=== PATIENT | male | born 1985 | race Caucasian/White ===

== ENCOUNTER 2020-03-08 14:25 | Outpatient (CLI) | payer OTHER, SELFPAY ==
--- NOTE | ~2020-03-08 | XR_ITS ---
EXAMINATION: XR knee RT 3V DATE: 03/08/2020 15:16 INDICATION: Right knee pain. TECHNIQUE: 3 views of right knee were obtained. COMPARISON: None. FINDINGS: Bone alignment is normal. No fracture. There is mild osteoarthritis of medial compartment c haracterized by tiny marginal osteophytes. No knee joint effusion. IMPRESSION: 1. Mild left knee osteoarthritis. Reviewed, dictated and finalized at location A.
--- NOTE | ~2020-03-08 | XR_ITS ---
EXAMINATION: XR knee LT 3V DATE: 03/08/2020 15:16 INDICATION: Left knee pain. TECHNIQUE: 3 views of left knee on 4 radiographs were obtained. COMPARISON: None. FINDINGS: Bone alignment is normal. No fracture. There is mild osteoarthritis of medial and patellofe moral compartments characterized by tiny marginal osteophytes. No knee joint effusion. IMPRESSION: 1. Mild left knee osteoarthritis. Reviewed, dictated and finalized at location A.
== END 2020-03-08 14:26 | disposition home or self-care (01) ==
LOC: CHSIMG 14:31
PROVIDERS: PCP Internal Medicine; Visit Provider Internal Medicine
DX: M25.562 Pain in left knee (principal); M25.561 Pain in right knee
CPT/HCPCS: 73562

== ENCOUNTER 2020-03-27 08:17 | Outpatient (CLI) | payer OTHER, SELFPAY ==
--- NOTE | ~2020-03-27 | MR_ITS ---
EXAMINATION: MR knee LT wo con DATE: 03/27/2020 09:13 INDICATION: Left knee pain TECHNIQUE: Magnetic resonance imaging (MRI) of the left knee was performed without intravenous contra st. Sequences included coronal PD-weighted FSE, coronal PD-weighted FS FSE, sagittal T2-weighted FSE , sagittal PD-weighted FS FSE and axial PD weighted fat saturated FSE. COMPARISON: None. FINDINGS: Medial compartment: Medial meniscus is normal. Articular cartilage is normal. Lateral compartment: Bucket-handle tear of the lateral meniscus with displacement of the relatively small bucket-handle fl ap. Articular cartilage is normal. Patellofemoral compartment: Chondral fissure which involves up to 50% the cartilage thickness at the patellar apical ridge. Troch lear cartilage is normal. Ligaments and tendons: Anterior and posterior cruciate ligaments are normal. There is thickening and mild increased signal i n the proximal medial collateral ligament without appreciable surrounding edema consistent with scarr ing related to chronic sprain. The fibular collateral ligament is normal. Moderate tendinopathy at th e insertion of the distal quadriceps tendon. The patellar tendon is normal. The visualized medial and lateral hamstring tendons as well as the iliotibial band are normal. Fluid: Physiologic amount of fluid in the joint space. No loose osteochondral bodies identified. Osseous/other: Normal marrow signal. No fracture or pathologic marrow replacing process. IMPRESSION: 1. Medial displacement of a bucket-handle tear of the lateral meniscus. 2. Partial-thickness chondral fissure at the patellar apical ridge. 3. Moderate distal quadriceps tendinopathy. 4. Scarring of the proximal medial collateral ligament likely related to chronic sprain. Reviewed, dictated and finalized at location A. IMPRESSION: 1. Medial displacement of a bucket-handle tear of the lateral meniscus. 2. Partial-thickness chondral fissure at the patellar apical ridge. 3. Moderate distal quadriceps tendinopathy. 4. Scarring of the proximal medial collateral ligament likely related to chroni c sprain.
== END 2020-03-27 08:18 | disposition home or self-care (01) ==
LOC: CHSIMG 08:18
PROVIDERS: PCP Internal Medicine; Visit Provider Internal Medicine
DX: M25.562 Pain in left knee (principal)
CPT/HCPCS: 73721

== ENCOUNTER 2020-11-27 01:20 | Outpatient (CLI) | payer OTHER, SELFPAY ==
[2020-11-27 18:46] LABS: SARS-CoV-2 RNA PCR Negative
== END 2020-11-27 01:21 | disposition home or self-care (01) ==
LOC: ANHCOVIDDT 01:20
PROVIDERS: PCP Internal Medicine; Visit Provider Urology
DX: Z01.812 Encounter for preprocedural laboratory examination (principal); Z20.822 Contact with and (suspected) exposure to COVID-19
CPT/HCPCS: C9803; U0003; U0005

== ENCOUNTER 2020-11-27 08:07 | Outpatient (CLI) | payer OTHER, SELFPAY ==
--- NOTE | 2020-11-27 08:25 | ECG_ITS ---
Measurements Intervals [place] Rate: 66 P: 34 MN: 172 QRS: 43 QRSD: 110 T: 29 QT: 380 QTc: 401 Interpretive Statements SINUS RHYTHM INTRAVENTRICULAR CONDUCTION DELAY BORDERLINE ECG Electronically Signed On 11-27-2020 8:41:53 DIETARY DIRECTOR by Jared Stratton D.O.
== END 2020-11-27 08:08 | disposition home or self-care (01) ==
PROVIDERS: PCP Internal Medicine; Visit Provider Anesthesiology
DX: Z01.818 Encounter for other preprocedural examination (principal); E78.00 Pure hypercholesterolemia, unspecified
CPT/HCPCS: 93005

== ENCOUNTER 2020-11-30 01:58 | Day surgery (SDC) | payer OTHER, SELFPAY ==
[2020-11-26 10:27] VITALS: BMI 43.4
--- NOTE | 2020-11-29 14:52 | WPDANESEPPF ---
Anes - Initial Pre Proc Eval Procedure: Operation Date: 11/30/20 12:15 Proposed Procedures p Bilateral Vasectomy With Possible Scrotal Exploration - Shahram Juárez MD Date/Time: 11/29/20 14:52 Surgeon: Shahram Juárez MD Pre Op Diagnosis: Encounter for male sterilization Patient Data Age: 34 Gender: M Height: 1.83 m Weight: 145.15 kg Allergies Allergy/AdvReac Type Severity Reaction Status Date / Time Sulfa (Sulfonamide Allergy Swelling Verified 11/26/20 10:22 Antibiotics) Home Medications Medication Instructions Recorded Confirmed Type rosuvastatin 10 mg PO QAM 11/26/20 11/26/20 History Patient hx anesthesia problems: none Family hx anesthesia problems: none PMF Past Medical History Medical History (Updated 11/29/20 @ 14:53 by Tushar Galicia MD) Hypercholesterolemia Morbid obesity with BMI of 40.0-44.9, adult Social History Social History Smoking status: Never smoker Living arrangements: other Spiritual care concerns: No Anes - Eval Final PreProcedure Day of Procedure 11/29/20 14:52 Patient weight: obese Heart: regular rate and rhythm Lungs: clear to auscultation and normal air movement Airway: Mallampati scale class II Neurological: alert and oriented Last oral intake: >/= 8 hours ASA classification: III Emergent: no Anesthetic plan: proceed Anesthesia type and monitoring: general GIVS and LMA Informed Consent: The patient's anesthetic plan and its attendant risks and benefits were discussed with the patient/family/POA. Questions were solicited and answers provided to the satisfaction of the patient/family/POA.
[2020-11-30] VITALS (8 sets, daily range): BP systolic 99–133; BP diastolic 47–83; PULSE 70–82; RESP 12–20; TEMP 36.2–36.6; O2SAT 93–100
[2020-11-30] MEDS: LACTATED RINGERS 1,000 ML 30 ML IV CONT (10:31)
--- NOTE | 2020-11-30 10:31 | WPDHPUPDATE1 ---
History and Physical Update Update Date/Time: 11/30/20 10:31 History and Physical has been reviewed, including an updated exam of the patient. There are NO changes in the patient's condition. Risks, benefits, and alternatives have been discussed and questions answered. Patient agrees to proceed with procedure.
[2020-11-30] MEDS: ceFAZolin 3 GM/D5W 100 ML 100 ML IVPB (11:57)
[2020-11-30] MEDS: LIDOCAINE HCL 1% LOCAL INJ 20 ML VIAL INFILTRATE (12:23)
--- NOTE | 2020-11-30 12:26 | PM.PROC ---
Procedure Note - Detailed Date of procedure: 11/30/20 Pre-op diagnosis: Encounter for male sterilization Post-op diagnosis: same Procedure performed: Bilateral vasectomy Description of procedure: Patient is taken to the operative suite and correctly identified. Once anesthesia was a obtained he was prepped draped usual sterile fashion. With relaxation we were able to palpate the vas as without difficulty. We did a standard midline incision. We isolated the right vas anesthetized with 1% lidocaine. We excised a segment fulgurated the ends and ligated the. Was then buried. This was then performed on the left side addition. We can anesthetized the skin and placed a 3 O chromic suture. Patient is taken recovery stable condition. This given the standard post vas instructions. IF he develops any problems he will call so we deal with appropriately Anesthesia: LEONARDO Surgeon: Shahram Juárez MD Drains: No Packing: No Pathology: yes Complications: No immediate complications Condition: stable Disposition: PACU
== END 2020-11-30 14:05 | disposition home or self-care (01) ==
PROVIDERS: PCP Internal Medicine; Visit Provider Urology
PROC: (CPT 55250; principal; 2020-11-30 12:15)
DX: Z30.2 Encounter for sterilization (principal); E78.00 Pure hypercholesterolemia, unspecified; E66.01 Morbid (severe) obesity due to excess calories; Z68.41 Body mass index [BMI] 40.0-44.9, adult
CPT/HCPCS: 55250; 88300; 93005; A9270; C9803; J0690; J1100; J2250; J2405; J2704; J3010; J7120; U0003; U0005

== ENCOUNTER 2021-01-05 12:26 | Outpatient (CLI) | payer OTHER, SELFPAY ==
[2021-01-06 00:59] LABS: SARS-CoV-2 RNA PCR Positive
== END 2021-01-05 12:27 | disposition home or self-care (01) ==
LOC: CHSLAB 12:27
PROVIDERS: PCP Internal Medicine; Visit Provider Internal Medicine
DX: U07.1 COVID-19 (principal)
CPT/HCPCS: C9803; U0003; U0005

== ENCOUNTER 2021-08-10 12:43 | Outpatient (CLI) | payer OTHER, SELFPAY ==
[2021-08-10 14:29] LABS: SARS-CoV-2 RNA PCR Negative (Negative)
== END 2021-08-10 12:44 | disposition home or self-care (01) ==
LOC: CHSLAB 12:45
PROVIDERS: PCP Internal Medicine; Visit Provider Internal Medicine
DX: J06.9 Acute upper respiratory infection, unspecified (principal); Z20.822 Contact with and (suspected) exposure to COVID-19
CPT/HCPCS: C9803; U0003; U0005

== ENCOUNTER 2021-10-26 15:44 | Outpatient (CLI) | payer OTHER, SELFPAY ==
[2021-10-26 17:38] LABS: Influenza A QL RT-PCR Negative (Negative); Influenza B QL RT-PCR Negative (Negative); SARS-CoV-2 RNA PCR Positive (Negative)
== END 2021-10-26 15:45 | disposition home or self-care (01) ==
PROVIDERS: PCP Internal Medicine; Visit Provider Internal Medicine
DX: U07.1 COVID-19 (principal); J06.9 Acute upper respiratory infection, unspecified
CPT/HCPCS: 87502; C9803; U0003; U0005

== ENCOUNTER 2023-04-09 07:29 | Outpatient (CLI) | payer OTHER, SELFPAY ==
--- NOTE | ~2023-04-09 | CT_ITS ---
EXAMINATION: CT sinus wo con DATE: 04/09/2023 07:47 INDICATION: Chronic sinusitis. Drainage. TECHNIQUE: Computed tomography (CT) of the paranasal sinuses was performed without intravenous contra st. The dose-length product was 277.13 mGy-cm. Automated exposure control and iterative reconstructio n technique were employed. COMPARISON: None FINDINGS: There is mucosal thickening of the maxillary and left posterior ethmoid air cells. There ar e bilateral juliano bullosa. Ostiomeatal units are patent bilaterally. No air-fluid levels. No signifi cant mucoperiosteal reaction. Mastoids are pneumatized. Rightward nasal septal deviation. IMPRESSION: 1. Mild sinus disease primarily involving the maxillary sinuses. Reviewed, dictated and finalized at location []
== END 2023-04-09 07:30 | disposition home or self-care (01) ==
PROVIDERS: PCP Internal Medicine; Visit Provider Internal Medicine
DX: J32.0 Chronic maxillary sinusitis (principal)
CPT/HCPCS: 70486

== ENCOUNTER 2023-05-24 07:51 | Outpatient (RCR) | payer OTHER, SELFPAY ==
[2023-05-24 08:01] VITALS: BMI 46.5
[2023-05-24 08:50] VITALS: BMI 46.5
== END 2023-08-13 11:08 | disposition home or self-care (01) ==
LOC: ANHDMC 07:51
PROVIDERS: PCP Internal Medicine; Visit Provider Internal Medicine
DX: E78.2 Mixed hyperlipidemia (principal); Z71.3 Dietary counseling and surveillance
CPT/HCPCS: 97802

== ENCOUNTER 2023-11-06 15:21 | Outpatient (CLI) | payer OTHER, SELFPAY ==
--- NOTE | ~2023-11-06 | XR_ITS ---
CORRECTED REPORT Changed XR knee LT [place] [facility] [place] This report was recreated on 11/07/23. Original report was K TOP ROLLER XR knee RT min 4V DATE: 11/06/2023 16:21 INDICATION: Patellar injury TECHNIQUE: 4 views COMPARISON: None FINDINGS: Patellar superior pole enthesopathy and distal quadriceps tendon calcification. No fracture or dislocation or knee joint effusion. No periosteal reaction or bone destruction. Joint spaces are preserved. No radiopaque intra-articular loose body or chondrocalcinosis. IMPRESSION: Distal quadriceps tendon calcification and superior pole patellar enthesopathy Reviewed, dictated and finalized at location L. K TOP ROLLER MTDD IMPRESSION: Distal quadriceps tendon calcification and superior pole patellar e nthesopathy
== END 2023-11-06 15:22 | disposition home or self-care (01) ==
LOC: CHSIMG 15:23
PROVIDERS: PCP Internal Medicine; Visit Provider Internal Medicine
DX: M25.561 Pain in right knee (principal); M76.51 Patellar tendinitis, right knee
CPT/HCPCS: 73564

== ENCOUNTER 2023-11-28 07:19 | Outpatient (CLI) | payer OTHER, SELFPAY ==
[2023-11-28 07:33] LABS: Basophils Absolute Auto 0.03 K/mm3 (0.00-0.10); Basophils Percent Auto 0.4 % (0.0-1.0); Eosinophils Absolute Auto 0.25 K/mm3 (0.02-0.50); Eosinophils Percent Auto 3.2 % (1.0-6.0); Hematocrit 41.3 % (40.0-54.0); Hemoglobin 14.4 g/dL (14.0-18.0); Immature Granulocyte Absolute 0.06 K/mm3 (0.00-0.00); Immature Granulocyte Percent A 0.8 % (0.0-0.0); Lymphocytes Absolute Auto 1.99 K/mm3 (1.10-4.50); Lymphocytes Percent Auto 25.1 % (18.0-42.0); Mean Corpuscular HGB Conc 34.9 g/dL (32.0-36.0); Mean Corpuscular Hemoglobin 29.9 pg (27.0-31.0); Mean Corpuscular Volume 85.7 fL (78.0-102.0); Monocytes Absolute Auto 0.79 K/mm3 (0.10-0.90); Neutrophils Absolute Auto 4.8 K/mm3 (1.7-7.2); Neutrophils Percent Auto 60.5 % (50.0-70.0); Platelet Count Result 239 K/mm3 (150-420); Red Blood Count 4.82 M/mm3 (4.70-6.10); Red Cell Distribution Width 12.8 % (11.6-14.4); White Blood Count 7.9 K/mm3 (4.8-10.8)
[2023-11-28 07:34] LABS: Appearance Urine Clear (Clear); Bilirubin Urine Negative (Negative); Blood Urine Negative (Negative); Color Urine Light Yellow (Yellow); Glucose Urine UA Negative (Negative); Ketones Urine Negative (Negative); Leukocyte Esterase Ur Negative (Negative); Nitrate Urine Negative (Negative); Protein Urine Negative (Negative); Specific Grav Ur 1.025 (1.010-1.020); Urobilinogen Urine 0.2 mg/dL (0.2-1.0)
[2023-11-28 07:46] LABS: Add Urine Microscopic? NO
[2023-11-28 08:30] LABS: Alanine Aminotransferase 35 U/L (16-63); Alkaline Phosphatase 53 U/L (46-116); Anion Gap 9 mmol/L (8-16); Aspartate Amino Transferase 19 U/L (15-37); Bilirubin,Total 0.5 mg/dL (0.00-1.00); Blood Urea Nitrogen 21 mg/dL (7-18); Calcium 8.4 mg/dL (8.5-10.1); Carbon Dioxide 27 mmol/L (21-32); Chloride 106 mmol/L (98-108); Cholesterol 129 mg/dL (0-200); Estimated Glomerular Filt Rate > 60; Glucose 107 mg/dL (70-99); HDL Direct 38 mg/dL (40-60); LDL Cholesterol Calculated 64 mg/dL (<130); Osmolality Calculated 297 mOsm/kg (285-295); Potassium 4.3 mmol/L (3.5-5.1); Sodium 142 mmol/L (136-145); Thyroid Stimulating Hormone 2.01 uIU/mL (0.36-3.74); Total Protein 7.1 g/dL (6.4-8.2); Triglycerides 133 mg/dL (0-150)
[2023-11-28 14:57] LABS: Hemoglobin A1C 4.7 % (<5.7)
[2023-12-01 07:46] LABS: LH 2.8 mIU/mL (1.5-9.3)
[2023-12-02 12:01] LABS: Testosterone Free 68.6 pg/mL (35.0-155.0); Testosterone Total 371 ng/dL (250-1100)
== END 2023-11-28 07:20 | disposition home or self-care (01) ==
LOC: CHSLAB 07:21
PROVIDERS: PCP Internal Medicine; Visit Provider Internal Medicine
DX: R73.9 Hyperglycemia, unspecified (principal); E29.1 Testicular hypofunction
CPT/HCPCS: 36415; 80053; 80061; 81003; 83002; 83036; 84402; 84403; 84443; 85025

== ENCOUNTER 2025-03-06 16:53 | Outpatient (CLI) | payer OTHER, SELFPAY ==
--- OUTSIDE RECORDS SUMMARY | 2025-03-06 16:57 | XMS_ITS | Clinical Summary ---
Author Organization [facility] Address [address] [place] [address] Care Team Providers Care Ammonia Technician Name Role Phone Mahamed Morgan MD Primary Care Provider [phone] Aly Bazan MD Unavailable Unavailable Allergies Active Allergy Reactions Criticality Noted Date Comments Sulfa Antibiotics Swelling 07/18/2019 Medications fluticasone propionate 50 MCG/ACT nasal spray USE 2 SPRAYS IN EACH NOSTRIL TWICE DAILY FOR 1 WEEK, THEN 2 SPRAYS IN EACH NOSTRIL EACH NIGHT 5 07/24/2018 Active montelukast 10 MG tablet Take 10 mg by mouth daily. 9 05/12/2019 Active rosuvastatin 10 MG tablet Take 10 mg by mouth daily. 0 05/12/2019 Active Active Problems Problem Noted Date Diagnosed Date Atypical chest pain 07/18/2019 Exertional dyspnea 07/18/2019 Mixed dyslipidemia 07/18/2019 Family History Medical History Relation Comments Diabetes Brother Coronary artery disease Maternal Grandfather Diabetes Maternal Grandfather Heart Attack Maternal Grandfather CHF Maternal Grandmother Cancer Maternal Grandmother Diabetes Mother Relation Status Comments Brother Maternal Grandfather Maternal Grandmother Mother Social History Tobacco Use Types Packs/Day Years Used Date Smoking Tobacco: Never Smokeless Tobacco: Former Chew Quit: 2006 Alcohol Use Standard Drinks/Week Comments No 0 (1 standard drink = 0.6 oz pur e alcohol) AUDIT-C Answer Date Recorded Frequency of Alcohol Consumption Never 07/01/2019 Average Number of Drinks Not on file 019 Frequency of Binge Drinking Not on file 12/2018 Sex and Gender Information Value Date Recorded Sex Assigned at Male 09/05/2023 12:42 PM DNA ANALYST Legal Sex Male 5:55 PM DNA ANALYST Gender Identity Male 09/05/2023 12:42 PM DNA ANALYST Sexual Orientation Straight 09/05/2023 12 :42 PM DNA ANALYST Occupation Industry Job Start Date Job End Date Not on file Not on file Not on file Not on file Last Filed Vital Signs Vital Sign Reading Time Taken Comments Blood Pressure 131/77 11/10/2019 1:23 PM DNA ANALYST Pulse 76 11/10/2019 1:23 PM DNA ANALYST Temperature - - Respiratory Rate 20 11/10/2019 1:23 PM DNA ANALYST Oxygen Saturation 100% 11/10/2019 1:23 PM DNA ANALYST Inhaled Oxygen Concentration - - Weight 144.2 kg (318 lb) 11/10/2019 1:23 PM DNA ANALYST Height 182.9 cm (6') 11/10/2019 1:23 PM DNA ANALYST Body Mass Index 43.13 11/10/2019 1:23 PM DNA ANALYST Plan of Treatment Health Maintenance Due Date Last Done Comments Annual Physical 1989 Hepatitis C 2004 DTaP, Tdap and Td Vaccines ( 1 - Tdap) 2005 Hepatitis B Vaccines (1 of 3 - 19+ 3-dose series) 2005 COVID-19 Vaccine (2023-2 5 season) 2024 HPV Vaccines Aged Out No longer eligi ble based on patient's age to complete this topic Meningococcal B Vaccine Aged Out No l onger eligible based on patient's age to complete this topic Meningococcal Vaccine Aged Out No ryan conchis eligible based on patient's age to complete this topic Pneumococcal Vaccine: Pediat rics (0 to 5 Years) and At-Risk Patients (6 to 49 Years) Aged Out No longer eligible b ased on patient's age to complete this topic RSV Immunizations Under 20 Months Aged Out No longer eligible based on patient's age to complete this topic Insurance [facility] Care Teams Ammonia Technician Relationship Specialty Start Date End Date Mahamed Morgan MD [address] [place] [address] PCP - General INTERNAL MEDICINE 06/03/19 Aly Bazan MD [address] [place] [address] Consulting Physician INTERVENTIONAL CARDIOLOGY 03/10/21
--- OUTSIDE RECORDS SUMMARY | 2025-03-06 16:57 | XMS_ITS | Data Portability ---
Author Organization [place] [facility] [employer], Main Office Address [address] [place] [address] Assessment Encounter Date Assessment Date Assessment LastModified by Organization Details LastModified Time 11/20/2023 11/20/2023 37-year-old male presents for evaluation of his right knee. 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 It spontaneously reduced after he straightened his knee. Since then it has happened 3 dish in all times. He reports swelling and bruising, with stiffness. He reports no issues with regular walking, but kneeling or doing heavy lifting at work bothers his knee. He has been taking ibuprofen, and using a knee brace. He currently rates his pain as 4/10. Review of systems per patient questionnaire Physical exam: He does have swelling over the anterior knee, tenderness palpation over the MPFL origin on the femur as well as over the medial patella. He does have increased translation compared to the contralateral side. Negative J sign. 2+ effusion. Range of motion 0-140. Neurovascular intact. 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 As such, we will order MRI to evaluate for the MPFL in any chondral damage or loose bodies. We discussed that depending on the results of the MRI we will talk about the treatment options. In the meantime, we ordered him a Dakota Pull Lite brace. We will see him back after the scan. He is in agreement with plan. Not available 11/20/2023 23:25:32 01/01/2024 01/01/2024 38-year-old male presents for follow-up of his right knee. He was being treated for patellar instability. He reports that the ibuprofen has been helping. He has not been wearing his patellar brace. He reports symptoms feeling worse, now with burning in the quad and feelings of instability, although he has not had any dislocations. Currently rates his pain as 5/10. He did get an MRI. tenderness palpation over the MPFL origin on the femur as well as over the medial patella. He does have increased translation compared to the contralateral side. Negative J sign. 2+ effusion. Range of motion 0-140. Neurovascular intact. MRI was reviewed, demonstrating intact MPFL, small tear of the medial meniscus We discussed treatment options. For his patella, we will continue rehabbing and wearing the brace, since MRI shows that there is no tear in the ligament the would have us recommend reconstruction. For his knee instability, he reports he only gets those problems when he is kneeling on it or otherwise putting excessive pressure. We discussed that he should use the brace when he is working, and avoid excessive pressure. We will send him to physical therapy, and also gave him a home exercise program while he is waiting for that to get improved. We will have him follow up on a as needed basis. Not available 01/02/2024 01:35:42 Plan of Treatment Reminders Order Date Submit Date Provider Last Modified By Organization Details Last Modified Time Details Appointments None recorded. Lab None recorded. Referral physical therapist referral - eval and treat 2023 024 [email or web address] [facility], [address] [place] [address], [place], [address], 22:44:50 Procedures None recorded. Surgeries None recorded. Imaging MRI, knee, w/o contrast - Please contact patient to schedule.. ..Thank you 2023 024 [facility], [address] [place] [address], [place], [address], 09:14:34 Medication Orders None recorded. Patient TargetsNo targets recorded. Patient InstructionsNo instructions recorded. Reason for Referral Physical Therapist Referral for Pain of right knee joint eval and treat Referring Physician: Jered Leon, Orthopedic Surgery, Encounter Date: 01/01/2024 Results Created Date Observation Date Name Description Value Unit Range Abnormal Flag Note LastModifiedBy Organization Detail LastModifiedTime 11/12/19 24 11/06/2023 XR, knee, 4 or more view No observ ation record ed. [email or web address] Not Available 10/29 10:49:41 12/10/19 MRI, knee, w/o contr ast No observ ation record ed. [email or web address] [facility] [address] [place], [address], 12/18/2023 09:14:34 Result Notes None recorded. Problems Name Problem SNOMED Code Status Onset Date Resolution Date Notes Provider Name and Address Organization Details Recorded Time Pain of right knee joint [id number] Active 2023 Sofia bañuelos [facility] 15:07:36 Problem Notes None recorded. Procedures Surgical History None recorded. Imaging Results Imaging Date Name Status LastModified by Organiz ation Details LastModified Time 11/06/2023 XR, knee, 4 or more view completed [email or web address] Information not available 11/12/2023 10:49:41 12/10/2023 MRI, knee, w/o contrast completed [email or web address] [address] [place], [address], 12/18/2023 09:14:34 Procedure Notes None recorded. Medical Equipment None Reported. Vitals Date Recorded Body height Body mass index (BMI) Body weight Provider Name and Address Organization Details Last Updated DateTime 11/20/2023 182.88 cm 44.2 kg/m2 553151.11 g JAYASHREE Murdock [facility] 11/20/2023 11:13:26 Date Recorded Body height Body mass index (BMI) Body weight Provider Name and Address Organization Details Last Updated DateTime 01/01/2024 182.88 cm 44.1 kg/m2 656429.52 JAYASHREE Martinez [facility] 01/01/2024 09:11:24 Social History None recorded. Functional Status None recorded. Mental Status None recorded. Family History Nothing Reported. Medical History No medical history recorded. Past Encounters Encounter ID Performer Location Encounter Start Date Encounter Closed Date Diagnosis/Indication Diagnosis SNOMED-CT Code Diagnosis ICD10 Code Diagnosis Note [id number] Jered Leon MD [facility] [place] [address] [place] [address] 11/20/2023 11:12:51 11/20/2023 15:09:29 Pain of right knee joint [id number] 98853 M25.775 [id number] Jered Leon MD [facility] [place] [address] [place] [address] 01/01/2024 09:08:25 01/01/2024 09:41:30 Pain of right knee joint [id number] 25279 M25.561 Health Concerns Section Related Observation LastModified by Organization Detai ls LastModified Time None Recorded Concern Status LastModified by Organization Details LastModified Time None Recorded Advance Directives Directive None Recorded Payers Encounter Date Sequence Insurance Name Policy Number Policy [place] Covered Member ID [place] Member ID Guarantor Name 11/20/2023 1 [id number] Joel Quintanilla [id number] Joel Quintanilla 01/01/2024 1 [id number] Joel Quintanilla [id number] Joel Quintanilla
[2025-03-06 17:07] LABS: Hematocrit 44.9 % (40.0-54.0); Hemoglobin 15.4 g/dL (14.0-18.0); Mean Corpuscular HGB Conc 34.3 g/dL (32-36); Mean Corpuscular Hemoglobin 29.6 pg (27.0-31.0); Mean Corpuscular Volume 86.3 fL (78.0-102.0); Mean Platelet Volume 9.3 fl (8.7-11.0); Platelet Count Result 211 K/mm3 (150-420); Red Cell Distribution Width 12.8 % (11.6-14.4); White Blood Count 8.7 K/mm3 (4.8-10.8)
[2025-03-06 17:09] LABS: Add Urine Microscopic? NO; Appearance Urine Clear (Clear); Bilirubin Urine Negative (Negative); Blood Urine Negative (Negative); Color Urine Yellow (Yellow); Glucose Urine UA Negative (Negative); Ketones Urine Negative (Negative); Leukocyte Esterase Ur Negative (Negative); Nitrate Urine Negative (Negative); Protein Urine Negative (Negative); Specific Grav Ur >= 1.030 (1.010-1.020); Urobilinogen Urine 0.2 mg/dL (0.2-1.0)
[2025-03-06 17:32] LABS: Alanine Aminotransferase 21 U/L (6-50); Albumin Level 4.8 g/dL (3.5-5.1); Alkaline Phosphatase 59 U/L (38-126); Anion Gap 5 mmol/L (4-12); Aspartate Amino Transferase 29 U/L (17-59); Bilirubin,Total 0.9 mg/dL (0.2-1.3); Blood Urea Nitrogen 20 mg/dL (9-20); CRP < 0.5 mg/dL (<1.0); Calcium 9.1 mg/dL (8.4-10.2); Carbon Dioxide 29 mmol/L (22-30); Chloride 108 mmol/L (98-107); Cholesterol 188 mg/dL (0-200); Estimated Glomerular Filt Rate > 60; Glucose 86 mg/dL (65-110); HDL Direct 32 mg/dL; LDL Cholesterol Calculated 90 mg/dL (<130); Osmolality Calculated 295 mOsm/kg (285-295); Potassium 4.8 mmol/L (3.4-5.0); Sodium 142 mmol/L (137-145); Total Protein 7.6 g/dL (6.3-8.2); Triglycerides 332 mg/dL (<150)
== END 2025-03-06 16:54 | disposition home or self-care (01) ==
LOC: CHSLAB 16:55
PROVIDERS: PCP Internal Medicine; Visit Provider Internal Medicine
DX: Z00.00 Encounter for general adult medical examination without abnormal findings (principal); G56.03 Carpal tunnel syndrome, bilateral upper limbs
CPT/HCPCS: 36415; 80053; 80061; 81003; 84443; 85027; 86140